=== PATIENT | male | born 1950 | race Caucasian/White ===

== ENCOUNTER 2017-08-18 05:30 | Emergency (ER) | payer OTHER, MEDICARE ==
[2017-08-18 05:35] VITALS: TEMP 97.7
--- NOTE | 2017-08-18 05:42 | EDPHY ---
H & P Stated Complaint: left sided migraine x3 days +photophobia/N/V HPI/ROS: HPI CHIEF COMPLAINT: Migraine headache HISTORY OF PRESENT ILLNESS: This patient very pleasant 67-year-old male, Retired OBGYN, he does suffer from debilitating migraine headaches. He is usually able to manage this on his own with IM Toradol as well as a Triptan. He states he has had a left-sided throbbing headache for the past 3 days. Unrelieved by his typical migraine medications. He does get Botox injections which is helped with his debilitating migraines. He presents emergency room with left-sided headache x3 days. He tells me this feels exactly like his previous migraines. He denies any neck pain. Denies fever. He does have nausea with no vomiting. Denies chest pain or shortness of breath. He does have photophobia. Decided come the emergency room as he is on ongoing symptoms for 3 days minimally relieved with his home treatments. Does tell me he is followed by a neurologist at [facility]. He states 1 time he had IV ketamine which worked great for his migraine headache. Past Medical History: Migraine headaches Past Surgical History: No recent surgery Social History: Denies daily use of drugs alcohol tobacco products. Family History: Noncontributory ROS REVIEW OF SYSTEMS: A comprehensive 10 point review of systems is otherwise negative aside from elements mentioned in the history of present illness. Exam Constitutional appears well nontoxic triage nursing summary reviewed, vital signs reviewed, awake/alert. Eyes normal conjunctivae and sclera, EOMI, PERRLA. HENT normal inspection, atraumatic, moist mucus membranes, no epistaxis, neck supple/ no meningismus, no raccoon eyes. Respiratory clear to auscultation bilaterally, normal breath sounds, no respiratory distress, no wheezing. Cardiovascular rate normal, regular rhythm, no murmur, no edema, distal pulses normal. Gastrointestinal soft, non-tender, no rebound, no guarding, normal bowel sounds, no distension, no pulsatile mass. Genitourinary no CVA tenderness. Musculoskeletal no midline vertebral tenderness, full range of motion, no calf swelling, no tenderness of extremities, no meningismus, good pulses, neurovascularly intact. Skin pink, warm, & dry, no rash, skin atraumatic. Neurologic no meningeal signs, normal neurological exam, awake, alert and oriented x 3, AAOx3, moves all 4 extremities equally, motor intact, sensory intact, CN II-XII intact, normal cerebellar, normal vision, normal speech. Psychiatric normal mood/affect. Heme/Lymph/Immune no lymphadenopathy. Differential Diagnosis: Includes but is not limited to in migraine headache, tension headache, cluster headache, doubt intracranial bleed. Medical Decision Making: Plan for this patient IV establishment, migraine cocktails been ordered basic blood work, IV fluids. Re-evaluate. Re-evaluation: [id number]: I did re-evaluate this patient at this time he sleeping. Once awake he does tell me that his pain is completely resolved. He denies having headache. He is sleepy after the IV Benadryl. He will need more time in the emergency room to metabolize the medications before going home his neurological exam is unchanged. Headache resolved. He feels much better. He is comfortable going home. Declined any discharge pain medicine. He does understand return to the ER if develops worsening symptoms questions or concerns. This includes worsening headache. Additionally recommend he follows up with his neurologist and primary care doctor. I do not feel that he needs any imaging given that this is his typical migraine headache. He is very familiar with this and has a longstanding history of migraine headaches. Source: Patient - Personal History Current Tetanus/Diphtheria Vaccine: Yes Current Tetanus Diphtheria and Acellular Pertussis (TDAP): Yes Tetanus Vaccine Date: 2007 - Medical/Surgical History Hx Asthma: No Hx Chronic Respiratory Disease: No Hx Diabetes: No Hx Cardiac Disease: No Hx Renal Disease: No Hx Cirrhosis: No Hx Alcoholism: No Hx HIV/AIDS: No Hx Splenectomy or Spleen Trauma: No Other PMH: pmh- depression, bph, migraines. psh- R shoulder - Social History Smoking Status: Never smoked Constitutional: Initial Vital Signs Temperature (C) 36.5 C 08/18/17 05:31 Heart Rate 72 08/18/17 05:31 Respiratory Rate 18 08/18/17 05:31 Blood Pressure 134/100 H 08/18/17 05:31 O2 Sat (%) 93 08/18/17 05:31 O2 Delivery Mode Room Air Allergies/Adverse Reactions: povidone-iodine [From Betadine] Allergy (Verified 03/18/15 07:24) Home Medications: Medication Instructions Recorded oxyCODONE/APAP 5/325 [Percocet 5 - 10 mg PO Q4-6PRN PRN #20 tab 11/19/12 5/325] Botulinum Toxin Type A [Botox] 100 unit IJ 03/18/15 Ketorolac Tromethamine [Toradol] 30 mg 03/18/15 Nortriptyline HCl [Pamelor] 10 mg PO HS 03/18/15 buPROPion SR [Wellbutrin Sr] 150 mg PO 03/18/15 Alfuzosin HCl 08/18/17 Medical Decision Making - Data Points Laboratory Results: Laboratory Results 08/18/17 05:58 08/18/17 05:58 08/18/17 08/18/17 05:58 05:58 WBC 7.25 10^3/uL 10^3/uL (3.80-9.50) RBC 5.15 10^6/uL 10^6/uL (4.40-6.38) Hgb 15.3 g/dL g/dL (13.7-17.5) Hct 45.0 % % (40.0-51.0) MCV 87.4 fL fL (81.5-99.8) MCH 29.7 pg pg (27.9-34.1) MCHC 34.0 g/dL g/dL (32.4-36.7) RDW 13.3 % % (11.5-15.2) Plt Count 222 10^3/uL 10^3/uL (150-400) MPV 10.9 fL fL (8.7-11.7) Neut % (Auto) 53.8 % % (39.3-74.2) Lymph % (Auto) 30.1 % % (15.0-45.0) Luna % (Auto) 9.2 % % (4.5-13.0) Eos % (Auto) 5.8 % % (0.6-7.6) Baso % (Auto) 0.8 % % (0.3-1.7) Nucleat RBC Rel Count 0.0 % % (0.0-0.2) Absolute Neuts (auto) 3.90 10^3/uL 10^3/uL (1.70-6.50) Absolute Lymphs (auto) 2.18 10^3/uL 10^3/uL (1.00-3.00) Absolute Monos (auto) 0.67 10^3/uL 10^3/uL (0.30-0.80) Absolute Eos (auto) 0.42 10^3/uL H 10^3/uL (0.03-0.40) Absolute Basos (auto) 0.06 10^3/uL 10^3/uL (0.02-0.10) Absolute Nucleated RBC 0.00 10^3/uL 10^3/uL (0-0.01) Immature Gran % 0.3 % % (0.0-1.1) Immature Gran # 0.02 10^3/uL 10^3/uL (0.00-0.10) Sodium 142 mEq/L mEq/L (134-144) Potassium 3.9 mEq/L mEq/L (3.5-5.2) Chloride 110 mEq/L mEq/L (97-110) Carbon Dioxide 23 mEq/l mEq/l (22-31) Anion Gap 9 mEq/L mEq/L (8-16) BUN 29 mg/dL H mg/dL (7-23) Creatinine 0.8 mg/dL mg/dL (0.7-1.3) Estimated GFR > 60 Glucose 97 mg/dL mg/dL (70-100) Calcium 9.0 mg/dL mg/dL (8.5-10.4) Medications Given: Discontinued Medications Dexamethasone (Decadron Injection) 10 mg IVP EDNOW ONE Stop: 08/18/17 05:47 Last Admin: 08/18/17 05:58 Dose: 10 mg Diphenhydramine HCl (Benadryl Injection) 50 mg IVP EDNOW ONE Stop: 08/18/17 05:47 Last Admin: 08/18/17 05:58 Dose: 50 mg Hydromorphone HCl (Dilaudid) 0.5 mg IVP EDNOW ONE Stop: 08/18/17 05:47 Last Admin: 08/18/17 05:58 Dose: 0.5 mg Sodium Chloride (Ns) 1,000 mls @ 0 mls/hr IV ONCE ONE; Wide Open PRN Reason: Protocol Stop: 08/18/17 05:47 Last Admin: 08/18/17 05:56 Dose: 1,000 mls Metoclopramide HCl (Reglan Injection) 10 mg IVP EDNOW ONE Stop: 08/18/17 05:47 Last Admin: 08/18/17 05:57 Dose: 10 mg Departure - Departure Disposition: Home, Routine, Self-Care Clinical Impression: Headache Qualifiers: Headache type: unspecified Headache chronicity pattern: acute headache Intractability: not intractable Qualified Code(s): R51 - Headache Condition: Good Instructions: Acute Headache (ED) Additional Instructions: 1. Please return to the emergency room if develops worsening symptoms includes worsening headache, vomiting, fever. Referrals: Tito Lorenzo MD [Primary Care Provider] - As per Instructions
[2017-08-18] MEDS ORDERED: NS 1,000 ML IV ONE (05:46)
[2017-08-18] MEDS ORDERED: DEXAMETHASONE 10 MG/ML VIAL IVP ONE (05:46)
[2017-08-18] MEDS ORDERED: METOCLOPRAMIDE 10 MG/2 ML VIAL IVP ONE (05:46)
[2017-08-18] MEDS ORDERED: HYDROmorphONE/DILAUDID 1 MG/ML INJ IVP ONE (05:46)
[2017-08-18 06:11] LABS: % IMMATURE GRANULYOCYTES 0.3 % (0.0-1.1); ABSOLUTE IMMATURE GRANULOCYTES 0.02 10^3/uL (0.00-0.10); ADD DIFF? NO; ADD MORPH? NO; ADD SCAN? NO; ATYPICAL LYMPHOCYTE FLAG 0 (0-99); FRAGMENT RBC FLAG 0 (0-99); HEMOGLOBIN 15.3 g/dL (13.7-17.5); LEFT SHIFT FLG 0 (0-99); LIPEMIA HEMOLYSIS FLAG 90 (0-99); MEAN CELL HEMOGLOBIN 29.7 pg (27.9-34.1); MEAN CELL VOLUME 87.4 fL (81.5-99.8); MEAN PLATELET VOLUME 10.9 fL (8.7-11.7); PLATELET CLUMPS FLAG 0 (0-99); PLATELET COUNT 222 10^3/uL (150-400); RED BLOOD CELL COUNT 5.15 10^6/uL (4.40-6.38); RED CELL DISTRIBUTION WIDTH 13.3 % (11.5-15.2)
[2017-08-18 06:22] LABS: ANION GAP 9 mEq/L (8-16); CARBON DIOXIDE 23 mEq/l (22-31); CHLORIDE 110 mEq/L (97-110); CREATININE 0.8 mg/dL (0.7-1.3); GLOMERULAR FILTRATION RATE > 60; GLUCOSE 97 mg/dL (70-100); POTASSIUM 3.9 mEq/L (3.5-5.2); SODIUM 142 mEq/L (134-144)
[2017-08-18 08:46] VITALS: BP 121/76; PULSE 64; RESP 18; O2SAT 95
== END 2017-08-18 08:55 | disposition home or self-care (01) ==
DX: R51 Headache (principal); E86.9 Volume depletion, unspecified
CPT/HCPCS: 96361; 96374; 96375; 99284; J1100; J1170; J1200; J2765

== ENCOUNTER → 2018-08-04 | Outpatient (CLI) | payer OTHER, MEDICARE | LOC: FIMAGING 12:12 | PROVIDERS: ATTEND Internal Medicine | DX: J84.9 Interstitial pulmonary disease, unspecified (principal) | CPT/HCPCS: G0103 ==

== ENCOUNTER → 2018-12-03 | Outpatient (CLI) | payer OTHER, MEDICARE | LOC: FIMAGING 10:23 | PROVIDERS: ATTEND Internal Medicine Critical Care Medicine | DX: J84.10 Pulmonary fibrosis, unspecified (principal) | CPT/HCPCS: 84481-90 ==

== ENCOUNTER 2018-12-29 19:55 | Emergency (ER) | payer OTHER, MEDICARE ==
--- NOTE | 2018-12-29 20:50 | EDPHY ---
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 No associated loss of consciousness. Patient has no focal neurological deficits on exam. He is alert, oriented and appropriate. He has a moderate sized contusion to the left parietal scalp with no underlying laceration or abrasion. No midline neck pain , neck with full range of motion, no upper extremity radiculopathy or weakness. Patient has refused imaging of the neck. CT head read by Radiology with no evidence of acute intracranial hemorrhage or skull fracture. Patient was complaining of some nausea and received Zofran. No reports of dizziness, vertigo, acute vision or hearing changes, or vomiting. Concussion, post concussive syndrome and 2nd impact syndromes discussed at length. Encouraged PCP follow-up in 24-48 hours. Case discussed with Dr. Chisholm. Warning signs for return to emergency department sooner outlined in person and discharge papers. DIFFERENTIAL DX: Differential diagnosis for headache includes but not limited to traumatic subarachnoid hemorrhage, traumatic intracranial bleeding, skull fracture, concussion, migraine headache, migraine variant headache, tension headache ED PROCEDURES: See lab and/or imaging results below ED COURSE: 8:50 pm. case discussed with Dr. Chisholm. patient has no midline neck pain, has FROM of neck without UE radiculopathy or weakness. Patient is refusing CT cervical spine. 2125: CT scan read by Dr. Cerna as negative for acute intracranial hemorrhage or skull fracture. 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 Patient reports he slipped on black ice on his steps, fell backwards striking the back left side of his head on the edge of a concrete step. He reports no loss of consciousness and was able to get up right away. Reports mild nausea and headache. He does have a history of migraines. He is not anticoagulated. He reports no neck or back pain, upper extremity numbness or weakness, prior neck injury or surgery. No prior history of TBI or intracranial bleeding. No acute vision changes. No complaints of dizziness or vertigo. 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 Eyes: No discharge, vision change ENT: No sore throat, congestion, ear pain. Cardiovascular: No chest pain, no palpitations. Gastrointestinal: No abdominal pain, positive for mild nausea, no vomiting, diarrhea. Musculoskeletal: No back pain, no neck pain, joint swelling, joint pain, myalgias. Skin: No rashes, color change. Neurological: Positive for mild headache, dizziness, weakness. PHYSICAL EXAM: General Appearance: Alert, oriented, appropriate, cooperative, NAD, well hydrated, non-toxic appearing, VSS, no hypoxia. HEENT: TMs are clear bilaterally no perforation or FB, no injection, no evidence of serous or mucopurulent otitis. No hemotympanum or Carrasco sign, Oropharynx clear is no erythema or exudates, no tonsillar hypertrophy or asymmetry. No intraoral laceration or malocclusion Dentition without abnormality. Eyes: PERRLA, no acute vision change, nystagmus, swelling, discharge, pain or photosensitivity. Conjunctiva pink, no pallor or injection Neck: Supple, nontender, no lymphadenopathy, no midline pain, FROM, no meningismus. Negative Spurling test Cardiac: Regular rate and rhythm, no murmurs or gallops. Gastrointestinal: [Abdomen is soft, nontender Neurological: Alert and oriented x 3, CN 2-12 grossly intact, normal gait no ataxia, DTR's intact, normal sensation and strength Skin: Warm, dry, no rashes, no nodules on palpation. Musculoskeletal: Extremities are symmetrical, full range of motion, no tenderness, deformity, swelling, or erythema. No upper extremity radiculopathy or weakness. Full range of motion of the neck. Psychiatric: Patient is oriented X 3, there is no agitation. MEDICAL DECISION MAKING: Patient was seen independently. Secondary supervising physician at time of evaluation was Dr. Chisholm . Diagnosis: Minor concussion, closed-head injury. New, requires workup Summary: See Assessment and Plan for summary of ED visit Clinical lab tests: Not obtained. Independent visualization of images, tracing, or specimens: Yes. Discussed patient with another provider: Dr. Chisholm Patient Progress: Improved. - Diagnostics Imaging Results: Imaging Impressions Head CT 12/29/18 20:21 Impression: No evidence for acute intracranial abnormality. No evidence for a skull fracture. Results discussed with Kim Chisholm M.D. - History Smoking Status: Never smoked - Objective Vital Signs: Initial Vital Signs Temperature (C) 36.8 C 12/29/18 19:57 Heart Rate 90 12/29/18 19:57 Respiratory Rate 20 12/29/18 19:57 Blood Pressure 142/93 H 12/29/18 19:57 O2 Sat (%) 93 12/29/18 19:57 O2 Delivery Mode Room Air Allergies/Adverse Reactions: povidone-iodine [From Betadine] Allergy (Verified 12/29/18 19:55) Home Medications: Medication Instructions Recorded Botulinum Toxin Type A [Botox] 100 unit IJ 03/18/15 Nortriptyline HCl [Pamelor] 10 mg PO HS 03/18/15 buPROPion SR [Wellbutrin Sr] 150 mg PO 03/18/15 Alfuzosin HCl 08/18/17 Depakote 06/15/18 SIMVASTATIN 06/15/18 Departure - Departure Disposition: Home, Routine, Self-Care Clinical Impression: Concussion Closed head injury Qualifiers: Encounter type: initial encounter Qualified Code(s): S09.90XA - Unspecified injury of head, initial encounter Condition: Good Instructions: Ondansetron (By mouth), Concussion (ED), Head Injury (ED) Additional Instructions: DISCHARGE INSTRUCTIONS FROM YOUR DOCTOR Thank you for visiting our emergency department today. Please keep in mind that discharge from the emergency department does not mean that there is nothing wrong - it simply means that we have not identified an emergency condition that requires further evaluation or treatment in the hospital. You should always plan to follow up with primary care for re-evaluation of your condition in the next 2-3 days. If you have been referred to a specialist, please call as soon as possible (today or tomorrow) to schedule your follow up appointment at the appropriate time. [THE CT SCAN OF YOUR HEAD WAS READ BY THE RADIOLOGIST NEGATIVE FOR INTRACRANIAL BLEEDING AND SKULL FRACTURE. YOU MAY HAVE SUSTAINED A MINOR CONCUSSION. PLEASE FOLLOWUP WITH A PRIMARY CARE DOCTOR IN 24-48 HOURS. IF YOU DO NOT HAVE A PRIMARY CARE, A REFERRAL WAS GIVEN TONIGHT. PLEASE AVOID TV, COMPUTERS, TEXTING, VIDEO GAMES, SCREEN TIME AND CONTACT SPORTS UNTIL YOU ARE CLEARED BY A PRIMARY CARE. WE HAVE ALSO INCLUDED OUR GRADUAL RETURN TO PLAY PROTOCOL A GUIDELINE BUT DEFINITIVE RETURN TO ABOVE MENTIONED ACTIVITIES SHOULD COME FROM YOUR PCP. RETURN TO THE ER SOONER FOR WORSENING OR SEVERE HEADACHES, SEIZURES, ALTERED MENTAL STATUS, VOMITING GRADUAL [id number] PROTOCOL PATIENT MUST BE SYMPTOM FREE FOR 24 HOURS BEFORE PROGRESSING TO THE NEXT STEP. IF PATIENT HAS SYMPTOMS DURING STEP'S 2-6, STOP ACTIVITY AND RETURN PREVIOUS STEP. PATIENT CAN NOT PROGRESS TO NEXT STEP UNLESS CURRENT STEP CAN BE COMPLETED WITH OUT ANY SYMPTOMS (IE HEADACHE, DIZZINESS, CONFUSION...) BRIGHT LIGHTS, TV, COMPUTERS, IPAD'S, MUSIC, READING CAN TRIGGER OR WORSEN CONCUSSION SYMPTOMS THUS SHOULD BE AVOIDED OR USED IN MODERATION. NO CONTACT SPORTS UNTIL YOU ARE CLEARED BY YOUR PRIMARY CARE PHYSICIAN. STEP 1. NO SAME DAY RETURN TO PLAY, REST ONLY , DO NOT PROCEED TO STEP 2 UNTIL ALL SYMPTOMS HAVE RESOLVED STEP 2. LIGHT AEROBIC EXERCISE (IE WALKING, SWIMMING OR STATIONARY CYCLING), WHILE KEEPING INTENSITY < 70% MAX HEART RATE STEP 3. SPORT-SPECIFIC EXERCISE (IE SKATING DRILLS IN ICE HOCKEY-NO PASSING, RUNNING DRILLS IN SOCCER-NO PASSING), NO HEAD IMPACT ACTIVITIES STEP 4. NON-CONTACT TRAINING, WITH PROGRESSION TO MORE COMPLEX DRILLS (IE PASSING DRILLS) NO HEAD IMPACT ACTIVITIES STEP 5. FULL-CONTACT PRACTICE AFTER GETTING MEDICAL CLEARANCE STEP 6. RETURN TO GAME PLAY THIS WAS BASED FROM: CONSENSUS STATEMENT ON CONCUSSION IN SPORT: THE 4TH INTERNATIONAL CONFERENCE ON CONCUSSION IN SPORT HELD IN SEP 2012. BR J SPORTS MED. 2013;47(5):250- 258 ] People present with illnesses and injuries in different ways, and it is always possible that we have missed something. You may always return for re-evaluation if symptoms worsen or if they are not improving or if you develop new/different symptoms. Again, thank you for choosing our emergency department. We hope that you feel better. Referrals: Marely Moreno MD [Primary Care Provider] - 1-2 days without fail
[2018-12-29] MEDS ORDERED: ONDANSETRON DISINTEGRATING 4 MG TAB PO ONE (21:40)
[2018-12-29] MEDS ORDERED: ONDANSETRON 4MG PREPACK#2 BTL TAKEHOME ONE (21:41)
[2018-12-29 22:12] VITALS: BP 107/78
== END 2018-12-29 22:12 | disposition home or self-care (01) ==
DX: S06.0X0A Concussion without loss of consciousness, initial encounter (principal); W01.198A Fall on same level from slipping, tripping and stumbling with subsequent striking against other object, initial encounter; Y92.9 Unspecified place or not applicable; Y93.9 Activity, unspecified; Y99.9 Unspecified external cause status